=== PATIENT | female | born 1950 | race Caucasian/White ===

== ENCOUNTER 2017-02-14 11:10 | Day surgery (SDC) | payer MEDICARE ==
[2017-02-14] MEDS ORDERED: LIDOCAINE 1% 20 ML VIAL (10MG/ML) FOR IV START INTRADERMA PRN (11:29)
[2017-02-14] MEDS ORDERED: LACTATED RINGERS 1,000 ML IV SCH (11:29)
[2017-02-14 11:35] VITALS: RESP 18; TEMP 98.1
[2017-02-14] MEDS: LACTATED RINGERS 1,000 ML IV ONE (11:35)
[2017-02-14] MEDS: LIDOCAINE 1% 20 ML VIAL (10MG/ML) FOR IV START SQ ONE (11:36)
[2017-02-14] MEDS ORDERED: GLUCAGON 1 MG/ML VIAL ONE (11:58)
[2017-02-14] MEDS ORDERED: LIDOCAINE 1% INJ 10MG/ML (20 ML MDV) ONE (11:58)
[2017-02-14] MEDS ORDERED: PROPOFOL 10 MG/ML 20 ML VIAL IV ONE (11:58)
--- NOTE | 2017-02-14 12:00 | P.GSHP ---
History of Present Illness H&P Date: 02/14/17 Chief Complaint: Right colon mass This is a 66-year-old female who is referred from Dr. Yobany Vasques. Patient had a recent hospital admission at [facility]. Patient was found to have a possible right colon mass on CAT scan. She presents today for colonoscopy. - Constitutional Constitutional: Reports as per HPI Past Medical History History of Any Multi-Drug Resistant Organisms: None Reported Past Surgical History: Breast Surgery, Tubal Ligation Additional Past Surgical History / Comment(s): LEFT BREAST MASTECTOMY AND LYMPH NODES , CHEMO AND RADIATION Past Anesthesia/Blood Transfusion Reactions: No Reported Reaction Past Psychological History: No Psychological Hx Reported Smoking Status: Current every day smoker Past Alcohol Use History: None Reported Past Drug Use History: None Reported - Past Family History Mother Family Medical History: Congestive Heart Failure (CHF), Dementia Father Family Medical History: Myocardial Infarction (AL) Medications and Allergies Home Medications Medication Instructions Recorded Confirmed Type No Known Home Medications [No 02/14/17 02/14/17 History Known Home Medications] Allergies Allergy/AdvReac Type Severity Reaction Status Date / Time No Known Allergies Allergy Verified 02/14/17 11:29 Surgical - Exam Vital Signs Temp Pulse Resp BP Pulse Ox 98.1 F 85 18 135/75 100 02/14/17 11:34 02/14/17 11:34 02/14/17 11:34 02/14/17 11:34 02/14/17 11:34 - General well developed, no distress - Eyes PERRL - ENT normal pinna - Neck no masses - Respiratory normal expansion - Cardiovascular Rhythm: regular - Abdomen Abdomen: soft, non tender Assessment and Plan Plan: Possible right colon mass visualized on CAT scan. We'll perform colonoscopy.
--- NOTE | 2017-02-14 12:51 | P.OP ---
Date of Procedure: 02/14/17 Preoperative Diagnosis: Right colon mass Postoperative Diagnosis: Rectal polyp Procedure(s) Performed: Colonoscopy Implants: Anesthesia: MAC Surgeon: Leonard Martino Pathology: other (Rectal polyp) Condition: stable Disposition: PACU Indications for Procedure: Operative Findings: Description of Procedure: The patient's placed on the endoscopy table lateral position. She received IV sedation. Rectal exam was performed which revealed no abnormalities. The flexible colonoscope was then placed patient anus passed rotator colon. The ileocecal valve was visualized. There was no masses seen in the cecum or right colon. There is no unsteady inflammation of the cecum or right colon. The cecum, ascending, transverse and descending colon appeared normal. Scope was brought back the sigmoid colon this appeared normal. Scope summer back the rectum and there was a polyp seen this is removed with snare. The scope was withdrawn for patient.
[2017-02-14 12:54] VITALS: BP 115/79; PULSE 75
== END 2017-02-14 13:12 | disposition home or self-care (01) ==
LOC: ORWHC2ENDO 11:10
PROVIDERS: ATTEND Surgery
DX: K62.1 Rectal polyp (principal); F17.200 Nicotine dependence, unspecified, uncomplicated
CPT/HCPCS: 88305; 45385; J1610; J2001; J2704

== ENCOUNTER → 2025-04-04 | Outpatient (CLI) | payer MEDICARE ==
[2025-04-04 13:06] LABS: INR 0.9 (<1.2)
[2025-04-04 13:07] LABS: Prothrombin Time 10.3 sec (10.0-12.5)
[2025-04-04 13:10] LABS: Partial Thromboplastin Time 21.0 sec (22.0-30.0)
[2025-04-04 15:23] LABS: HCT 35.0 % (37.2-46.3); HGB 12.1 g/dL (12.0-15.0); MCH 34.4 pg (27.0-32.0); MCHC 34.6 g/dL (32.0-37.0); MCV 99.4 FL (80.0-97.0); NRBC Per 100 WBC 0 X 10*3/uL (0.00-0.01); Platelet Count 338 X 10*3/uL (140-440); RBC 3.52 X 10*6/uL (4.10-5.20); RDW 11.9 % (11.5-14.5); WBC 5.34 X 10*3/uL (4.50-10.00)
[2025-04-04 15:30] LABS: Anion Gap 13.80 mmol/L (4.00-12.00); BUN/Creat Ratio 21.71 Ratio (12.00-20.00); Blood Urea Nitrogen 15.2 mg/dL (9.0-27.0); Carbon Dioxide 25.2 mmol/L (21.6-31.8); Chloride 101 mmol/L (96-109); Glucose 90 mg/dL (70-110); Potassium 3.9 mmol/L (3.5-5.5); Sodium 140 mmol/L (135-145)
[2025-04-04 15:31] LABS: ALT 16 U/L (8-44); AST 27 U/L (13-35); Albumin 4.6 g/dL (3.8-4.9); Albumin/Globulin Ratio 2.19 Ratio (1.60-3.17); Alkaline Phosphatase 63 U/L (41-126); Calcium 9.8 mg/dL (8.7-10.3); Globulin 2.1 g/dL (1.6-3.3); Total Protein 6.7 g/dL (6.2-8.2)
== END | disposition home or self-care (01) ==
LOC: LABPAT 10:21
PROVIDERS: ATTEND Orthopaedic Surgery
DX: Z01.818 Encounter for other preprocedural examination (principal); E11.9 Type 2 diabetes mellitus without complications; Z22.322 Carrier or suspected carrier of Methicillin resistant Staphylococcus aureus
CPT/HCPCS: 80053; 83036; 85027; 85610; 85730; 87070